=== PATIENT | male | born 1970 | race Caucasian/White ===

== ENCOUNTER 2019-06-07 10:23 | Emergency (ER) | payer MEDICAID ==
[~2019-06-07] VITALS: Ht 185.4 cm; Wt 172.4 kg
[2019-06-07 11:07] LABS: BASOPHILS % (AUTO) 0.7 % (0.0-2.0); EOSINOPHILS % (AUTO) 3.5 % (1.0-6.0); HEMATOCRIT 42.2 % (41-53); LYMPHOCYTES # (AUTO) 1.6 K/uL (1.0-4.8); LYMPHOCYTES % (AUTO) 24.5 % (22.0-44.0); MEAN CORPUSCULAR HEMOGLOBIN 31.1 pg (26.0-34.0); MEAN CORPUSCULAR HGB CONC 33.3 G/dL (31.0-37.0); MEAN CORPUSCULAR VOLUME 93 fL (80-100); MONOCYTES # (AUTO) 0.4 K/uL (0.1-1.0); MONOCYTES % (AUTO) 6.9 % (2.0-9.0); NEUTROPHILS # (AUTO) 4.1 K/uL (1.8-7.7); NEUTROPHILS % (AUTO) 64.4 % (40.0-70.0); PLATELET COUNT (AUTO) 178 K/uL (150-450); RED BLOOD CELL COUNT(AUTO) 4.52 MIL/uL (4.50-5.90); RED CELL DISTRIBUTION WIDTH 14.2 % (11.5-14.5)
[2019-06-07 11:15] LABS: ANION GAP 9 mmol/L (8-16); CARBON DIOXIDE 26 mmol/L (22-29); CHLORIDE 104 mmol/L (98-107); CREATININE 1.12 mg/dL (0.60-1.30); GLOMERULAR FILTR. RATE CALC > 60 mL/min (>60); GLUCOSE,RANDOM 138 mg/dL (70-110); POTASSIUM 3.4 mmol/L (3.5-5.1); SODIUM SERUM 139 mmol/L (136-145); UREA NITROGEN, BLOOD 12 mg/dL (7-18)
[2019-06-07] MEDS ORDERED: LOSARTAN POTASSIUM 50 MG TABLET PO ONE (11:15)
[2019-06-07 11:16] LABS: CALCIUM, TOTAL 8.7 mg/dL (8.8-10.5)
[2019-06-07 11:22] LABS: ALANINE AMINOTRANSFERASE 32 U/L (12-78); ALBUMIN 3.5 g/dL (3.4-5.0); ALKALINE PHOSPHATASE 123 U/L (46-116); ASPARTATE AMINOTRANSFERASE 23 U/L (15-37); BILIRUBIN,TOTAL 0.6 mg/dL (0.1-1.0); TOTAL PROTEIN, SERUM 7.1 g/dL (6.4-8.2)
[2019-06-07] MEDS ORDERED: SODIUM CHLORIDE 0.9% 100 ML ONE (11:29)
[2019-06-07] MEDS ORDERED: IOVERSOL 350 MG/ML 150 ML VIAL ONE (11:29)
[2019-06-07] MEDS ORDERED: ESMOLOL HCL 2500 MG/NACL 250 ML IV PRN (13:30)
[2019-06-07] MEDS ORDERED: ESMOLOL HCL 10 MG/ML 10 ML VIAL IVP ONE ×2 (13:30→13:45)
[2019-06-07] MEDS ORDERED: METOPROLOL TARTRATE 5 MG/5 ML VIAL ONE (14:07)
[2019-06-07] MEDS ORDERED: METOPROLOL TARTRATE 5 MG/5 ML VIAL IVP ONE (14:15)
[2019-06-07] MEDS ORDERED: NiCARDipine HCL 25 MG in DEXTROSE 5%-WATER 240 ML IV PRN ×2 (14:15→14:30)
[2019-06-07 14:31] LABS: AMPHET/METH SCREEN,URINE POSITIVE (NEGATIVE); BARBITURATE SCREEN, URINE NEGATIVE (NEGATIVE); BENZODIAZEPINES SCREEN,URINE NEGATIVE (NEGATIVE); CANNABINOID SCREEN,URINE NEGATIVE (NEGATIVE); COCAINE SCREEN,URINE NEGATIVE (NEGATIVE); METHADONE SCREEN, URINE NEGATIVE (NEGATIVE); OPIATE SCREEN,URINE NEGATIVE (NEGATIVE)
[2019-06-07 14:32] LABS: PHENCYCLIDINE SCREEN,URINE NEGATIVE (NEGATIVE)
[2019-06-07 16:29] VITALS: BP 112/69
== END 2019-06-07 16:46 | disposition short-term general hospital (02) ==
LOC: EMS 10:24
DX: I71.01 Dissection of thoracic aorta (principal); I71.02 Dissection of abdominal aorta; R45.850 Homicidal ideations; F15.10 Other stimulant abuse, uncomplicated
CPT/HCPCS: 36415; 71260; 74177; 80053; 80307; 84484; 85025; 93005; 96365; 96366; 96375; 99291; G0480; J3490 ×3; J7050; J7060; Q9967; 72193; 74160